=== PATIENT | male | born 1970 | race African-American/Black ===

== ENCOUNTER 2019-02-18 04:54 | Inpatient (IN) ==
[2019-02-10 08:40] LABS: Basophils # 0.1 10*3/uL (0.0-0.2); Eosinophils # 0.1 10*3/uL (0.0-0.87); Hematocrit 42.8 VOL% (42.0-52.0); Hemoglobin 13.6 GM/DL (14.0-18.0); Immature Granulocytes % 0.2 %; Immature Granulocytes Absolute 0.01 #; Lymphocytes # 1.9 10*3/uL (1.4-4.0); Lymphocytes % 31.7 % (21.2-54.2); Mean Corpuscular HGB Conc 31.8 GM/DL (32-36); Mean Corpuscular Volume 88.6 FL (87-102); Mean Platelet Volume 8.8 FL (9.6-12.0); Monocytes % 6.7 % (1.7-12.7); Neutrophils % 59.4 % (38.7-73.9); Platelet Count 242 T/CUMM (130-400); Red Blood Count 4.83 MC/CUMM (3.8-5.5); Red Cell Distribution Width 14.1 % (9.3-17.3); White Blood Count 6.1 T/CUMM (4-12)
[2019-02-10 08:48] LABS: PT Patient Result 10.7 SECS; Partial Thromboplastin Time 26.3 SECS (0-40)
[2019-02-10 08:50] LABS: Apearance,Urine CLEAR (Clear); Bilirubin,Urine Negative (Negative); Blood, Urine Negative (Negative); Glucose,Urine (UA) Negative (Negative); Ketones,Urine Negative (Negative); Mucus,Urine Occasional /LPF (Occasional); Nitrite,Urine Negative (Negative); Protein,Urine Negative; RBC,Urine <1 /HPF (0-4); Urine Color Yellow (Yellow); Urine Specific Gravity 1.015 (1.001-1.035); Urine Urobilinogen < 2.0 EU/DL (0.2-1.0); WBC,Urine <1 /HPF (0-6)
[2019-02-10 09:10] LABS: Albumin 3.8 G/DL (3.4-5.0); Bilirubin,Total 0.5 MG/DL (0.2-1.0); Calcium 8.5 MG/DL (8.5-10.1); Osmolality,Calculated 279.4 MOS/KG (273-304); Total Protein 6.8 G/DL (6.4-8.3)
[2019-02-18] MEDS ORDERED: VANCOMYCIN INJ 1,000 MG in SODIUM CHLORIDE 0.9% 250 ML IV ONE ×2 (06:00→20:00)
[2019-02-18] MEDS ORDERED: CLINDAMYCIN INJ 900 MG in PREMIX 1 EACH IV ONE (06:00)
[2019-02-18] MEDS ORDERED: CLINDAMYCIN INJ 50 ML IV ONE (07:12)
[2019-02-18] MEDS ORDERED: VANCOMYCIN 1,000 MG VIAL ONE (07:12)
[2019-02-18] MEDS: LACTATED RINGERS 1,000 ML IV SCH ×3 (08:09→23:24)
[2019-02-18] MEDS ORDERED: BACITRACIN OINT 0.9 GM PACK TOP ONE (11:03)
[2019-02-18] MEDS ORDERED: ONDANSETRON 4 MG/2 ML VIAL IV PRN (11:34)
[2019-02-18] MEDS ORDERED: oxyCODONE IR 5 MG TABLET PO PRN (11:34)
[2019-02-18] MEDS ORDERED: MAGNESIUM HYDROXIDE SUSP 30 ML UDCUP PO PRN (11:34)
[2019-02-18] MEDS ORDERED: diphenhydrAMINE CAP 25 MG CAPSULE PO PRN (11:34)
[2019-02-18] MEDS ORDERED: MORPHINE 4 MG/1 ML VIAL IV PRN ×2 (11:34)
[2019-02-18] MEDS ORDERED: LIDOCAINE 1% 5 ML VIAL ONE (11:56)
[2019-02-18] MEDS ORDERED: BUPIVACAINE SPINAL 0.75% 2 ML AMP SPINAL ONE (11:56)
[2019-02-18] MEDS ORDERED: PROPOFOL 200 MG/20 ML VIAL IV ONE (11:56)
[2019-02-18] MEDS ORDERED: fentaNYL 100 MCG/2 ML VIAL ONE (11:56)
[2019-02-18] MEDS ORDERED: BUPIVACAINE 0.5% 50 ML VIAL ONE (11:56)
[2019-02-18] MEDS ORDERED: EPINEPHrine 1 MG/ML VIAL ONE (11:57)
[2019-02-18] MEDS ORDERED: MIDAZOLAM 2 MG/2 ML VIAL ONE (11:57)
[2019-02-18] MEDS ORDERED: ONDANSETRON 4 MG/2 ML VIAL ONE ×2 (11:58→12:00)
[2019-02-18] MEDS ORDERED: TRANEXAMIC ACID 1,000 MG/10 ML VIAL ONE (11:58)
[2019-02-18] MEDS ORDERED: KETAMINE 500 MG/10 ML VIAL ONE (11:58)
[2019-02-18] MEDS ORDERED: DEXAMETHASONE 4 MG/1 ML VIAL ONE (11:58)
[2019-02-18] MEDS ORDERED: SODIUM CHLORIDE 0.9% 100 ML IV ONE (11:59)
[2019-02-18] MEDS ORDERED: ETOMIDATE 40 MG/20 ML VIAL IV ONE (11:59)
[2019-02-18] MEDS: ACETAMINOPHEN 500 MG TABLET PO SCH ×2 (16:21→20:54)
[2019-02-18] MEDS: CLINDAMYCIN INJ 900 MG in PREMIX 1 EACH IV SCH ×2 (18:10→23:24)
[2019-02-18] MEDS: KETOROLAC 30 MG/1 ML VIAL IV SCH ×2 (18:47→23:24)
[2019-02-18] MEDS: PANTOPRAZOLE 40 MG TABLET PO SCH (20:45)
[2019-02-18] MEDS: ARIPiprazole 10 MG TABLET PO SCH (20:45)
[2019-02-18] MEDS: PROPRANOLOL 10 MG TABLET PO SCH (20:45)
[2019-02-18] MEDS: DOCUSATE SODIUM 100 MG CAPSULE PO SCH (20:45)
[2019-02-18] MEDS: traZODone 50 MG TABLET PO PRN (20:45)
[2019-02-18] MEDS ORDERED: NON-FORMULARY MEDICATION (Vortioxetine Hydrobromide [Trintellix] 10 MG) PO SCH (21:00)
[2019-02-18] MEDS: oxyCODONE IR 5 MG TABLET PO PRN (23:24)
[2019-02-19] MEDS: ACETAMINOPHEN 500 MG TABLET PO SCH ×2 (03:01→09:21)
[2019-02-19 05:11] LABS: Basophils % 0.2 % (0.0-0.8); Hematocrit 33.1 VOL% (42.0-52.0); Hemoglobin 10.7 GM/DL (14.0-18.0); Immature Granulocytes % 0.4 %; Immature Granulocytes Absolute 0.05 #; Lymphocytes # 1.3 10*3/uL (1.4-4.0); Lymphocytes % 11.5 % (21.2-54.2); Mean Corpuscular HGB Conc 32.3 GM/DL (32-36); Mean Corpuscular Volume 87.1 FL (87-102); Mean Platelet Volume 9.2 FL (9.6-12.0); Monocytes % 7.1 % (1.7-12.7); Neutrophils % 80.8 % (38.7-73.9); Platelet Count 201 T/CUMM (130-400); Red Cell Distribution Width 13.7 % (9.3-17.3); White Blood Count 11.3 T/CUMM (4-12)
[2019-02-19 05:30] LABS: Osmolality,Calculated 277.7 MOS/KG (273-304)
[2019-02-19] MEDS: KETOROLAC 30 MG/1 ML VIAL IV SCH ×2 (06:37→12:06)
[2019-02-19] MEDS: FONDAPARINUX 2.5 MG/0.5 ML SYRINGE SUBCUT SCH (06:37)
[2019-02-19] MEDS: oxyCODONE IR 5 MG TABLET PO PRN (06:37)
[2019-02-19] MEDS: DOCUSATE SODIUM 100 MG CAPSULE PO SCH ×2 (09:21→20:41)
[2019-02-19] MEDS: LACTATED RINGERS 1,000 ML IV SCH ×2 (11:39→11:40)
[2019-02-19] MEDS: CELECOXIB 200 MG CAPSULE PO SCH (18:14)
[2019-02-19] MEDS: ARIPiprazole 10 MG TABLET PO SCH (20:41)
[2019-02-19] MEDS: PROPRANOLOL 10 MG TABLET PO SCH (20:41)
[2019-02-19] MEDS: PANTOPRAZOLE 40 MG TABLET PO SCH (20:41)
[2019-02-19] MEDS: traZODone 50 MG TABLET PO PRN (21:42)
[2019-02-20] MEDS: FONDAPARINUX 2.5 MG/0.5 ML SYRINGE SUBCUT SCH (05:50)
[2019-02-20 06:05] LABS: Basophils % 0.4 % (0.0-0.8); Eosinophils # 0.1 10*3/uL (0.0-0.87); Eosinophils % 0.6 % (0.00-10.9); Hemoglobin 9.5 GM/DL (14.0-18.0); Immature Granulocytes % 0.3 %; Immature Granulocytes Absolute 0.02 #; Lymphocytes # 2.9 10*3/uL (1.4-4.0); Lymphocytes % 36.4 % (21.2-54.2); Mean Corpuscular HGB Conc 31.7 GM/DL (32-36); Mean Corpuscular Volume 87.5 FL (87-102); Mean Platelet Volume 9.6 FL (9.6-12.0); Monocytes % 7.5 % (1.7-12.7); Neutrophils % 54.8 % (38.7-73.9); Platelet Count 182 T/CUMM (130-400); Red Blood Count 3.43 MC/CUMM (3.8-5.5); White Blood Count 7.8 T/CUMM (4-12)
[2019-02-20 07:57] VITALS: BP 134/68
[2019-02-20] MEDS: DOCUSATE SODIUM 100 MG CAPSULE PO SCH (08:52)
[2019-02-20] MEDS: CELECOXIB 200 MG CAPSULE PO SCH (08:52)
== END 2019-02-20 11:04 | disposition home or self-care (01) | DRG 302 ==
LOC: N.OR 04:54 → N.SDSINP 04:55 → N.3E 11:35
PROVIDERS: ADMIT Orthopaedic Surgery; ATTEND Orthopaedic Surgery

== ENCOUNTER 2019-12-04 04:52 | Observation (INO) ==
[2019-11-28 09:35] LABS: Basophils # 0.1 10*3/uL (0.0-0.2); Basophils % 0.9 % (0.0-0.8); Eosinophils % 0.2 % (0.00-10.9); Hematocrit 43.9 VOL% (42.0-52.0); Hemoglobin 14.2 GM/DL (14.0-18.0); Immature Granulocytes % 0.2 %; Immature Granulocytes Absolute 0.02 #; Lymphocytes # 2.1 10*3/uL (1.4-4.0); Lymphocytes % 26.4 % (21.2-54.2); Mean Corpuscular HGB Conc 32.3 GM/DL (32-36); Mean Corpuscular Volume 88.7 FL (87-102); Mean Platelet Volume 8.6 FL (9.6-12.0); Monocytes % 6.6 % (1.7-12.7); Neutrophils % 65.7 % (38.7-73.9); Platelet Count 280 T/CUMM (130-400); Red Blood Count 4.95 MC/CUMM (3.8-5.5); Red Cell Distribution Width 14.7 % (9.3-17.3)
[2019-11-28 09:54] LABS: Calcium 8.8 MG/DL (8.5-10.1); Osmolality,Calculated 276.5 MOS/KG (273-304)
[2019-12-04] MEDS ORDERED: DIAZEPAM 5 MG TABLET PO ONE (06:00)
[2019-12-04] MEDS ORDERED: GABAPENTIN 400 MG CAPSULE PO ONE (06:00)
[2019-12-04] MEDS ORDERED: ACETAMINOPHEN 500 MG TABLET PO ONE (06:00)
[2019-12-04] MEDS ORDERED: CLINDAMYCIN INJ 900 MG in PREMIX 1 EACH IV ONE (06:00)
[2019-12-04] MEDS ORDERED: FAMOTIDINE 20 MG TABLET PO ONE (06:00)
[2019-12-04] MEDS ORDERED: FAMOTIDINE 20 MG TABLET ONE (06:57)
[2019-12-04] MEDS ORDERED: ACETAMINOPHEN 500 MG TABLET ONE (06:57)
[2019-12-04] MEDS ORDERED: DIAZEPAM 5 MG TABLET ONE (06:57)
[2019-12-04] MEDS ORDERED: CLINDAMYCIN INJ 50 ML IV ONE (06:57)
[2019-12-04] MEDS ORDERED: GABAPENTIN 400 MG CAPSULE ONE (06:57)
[2019-12-04] MEDS: LACTATED RINGERS 1,000 ML IV SCH ×2 (07:01→14:10)
[2019-12-04] MEDS ORDERED: LIDOCAINE 1% 5 ML VIAL ONE (08:24)
[2019-12-04] MEDS ORDERED: ROPIVACAINE 0.5% 30 ML VIAL ONE (08:24)
[2019-12-04] MEDS ORDERED: DEXAMETHASONE 4 MG/1 ML VIAL ONE (08:24)
[2019-12-04] MEDS ORDERED: MIDAZOLAM 2 MG/2 ML VIAL ONE (08:59)
[2019-12-04] MEDS ORDERED: BACITRACIN OINT 0.9 GM PACK TOP ONE (10:57)
[2019-12-04] MEDS ORDERED: LIDOCAINE 2% 5 ML VIAL ONE (11:21)
[2019-12-04] MEDS ORDERED: fentaNYL 100 MCG/2 ML VIAL ONE (11:21)
[2019-12-04] MEDS ORDERED: propofoL 200 MG/20 ML VIAL IV ONE (11:21)
[2019-12-04] MEDS ORDERED: SEVOFLURANE 1 UNIT/15 MINUTE INH ONE (11:21)
[2019-12-04] MEDS ORDERED: GLYCOPYRROLATE 0.4 MG/2 ML VIAL ONE (11:21)
[2019-12-04] MEDS ORDERED: HYDROmorphone 2 MG/1 ML VIAL IV PRN (11:24)
[2019-12-04] MEDS ORDERED: ONDANSETRON 4 MG/2 ML VIAL IV PRN ×2 (11:24→13:56)
[2019-12-04] MEDS ORDERED: HYDROmorphone 2 MG/1 ML VIAL ONE (11:26)
[2019-12-04] MEDS ORDERED: ONDANSETRON 4 MG/2 ML VIAL ONE (11:26)
[2019-12-04] MEDS ORDERED: hydrALAZINE 20 MG/1 ML VIAL IV ONE (12:08)
[2019-12-04] MEDS ORDERED: hydrALAZINE 20 MG/1 ML VIAL ONE (12:10)
[2019-12-04 12:19] LABS: Troponin I < 0.015 NG/ML (0.00-0.045)
[2019-12-04] MEDS ORDERED: MORPHINE 10 MG/1 ML VIAL ONE (13:20)
[2019-12-04] MEDS ORDERED: MORPHINE 10 MG/1 ML VIAL IV ONE (13:27)
[2019-12-04] MEDS ORDERED: MORPHINE 4 MG/1 ML VIAL IV ONE (13:30)
[2019-12-04] MEDS ORDERED: NITROGLYCERIN SL 0.4 MG TABLET SL PRN (13:56)
[2019-12-04] MEDS ORDERED: MAGNESIUM SULF RIDER 4 GM in PREMIX 1 EACH IV PRN (13:56)
[2019-12-04] MEDS ORDERED: ALUM/MAG/SIMETH/LIDO VISC 1:1 30 ML BOTTLE PO PRN (13:56)
[2019-12-04] MEDS ORDERED: MAGNESIUM SULF RIDER 2 GM in PREMIX 1 EACH IV PRN (13:56)
[2019-12-04] MEDS ORDERED: ACETAMINOPHEN 325 MG TABLET PO PRN (13:56)
[2019-12-04] MEDS ORDERED: POTASSIUM CHLORIDE 20 MEQ TABLET PO PRN ×2 (13:56)
[2019-12-04 14:44] LABS: Risk Ratio 2.09; VLDL CHOLESTEROL 10.4 MG/DL
[2019-12-04 14:45] LABS: Albumin 3.6 G/DL (3.4-5.0); Bilirubin,Total 0.6 MG/DL (0.2-1.0); Calcium 8.7 MG/DL (8.5-10.1); Osmolality,Calculated 270.8 MOS/KG (273-304); Total Protein 6.8 G/DL (6.4-8.3)
[2019-12-04 16:02] LABS: Basophils % 0.3 % (0.0-0.8); Hemoglobin 14.3 GM/DL (14.0-18.0); Immature Granulocytes % 0.5 %; Immature Granulocytes Absolute 0.03 #; Lymphocytes # 0.7 10*3/uL (1.4-4.0); Lymphocytes % 10.9 % (21.2-54.2); Mean Corpuscular HGB Conc 32.5 GM/DL (32-36); Mean Corpuscular Volume 89.6 FL (87-102); Mean Platelet Volume 8.8 FL (9.6-12.0); Monocytes % 1.4 % (1.7-12.7); Neutrophils % 86.9 % (38.7-73.9); Platelet Count 263 T/CUMM (130-400); Red Blood Count 4.91 MC/CUMM (3.8-5.5); Red Cell Distribution Width 14.7 % (9.3-17.3); White Blood Count 6.3 T/CUMM (4-12)
[2019-12-04 18:44] LABS: Troponin I < 0.015 NG/ML (0.00-0.045)
[2019-12-04 20:36] LABS: Troponin I < 0.015 NG/ML (0.00-0.045)
[2019-12-04] MEDS ORDERED: ARIPiprazole 10 MG TABLET PO SCH (21:00)
[2019-12-04] MEDS ORDERED: amLODIPine 5 MG TABLET PO SCH (21:00)
[2019-12-04] MEDS: busPIRone 15 MG TABLET PO SCH (21:54)
[2019-12-05 04:18] LABS: Barbiturates Screen,Urine Negative (Negative); Benzodiazepines Screen,Urine Positive (Negative); Cannabinoid Screen,Urine Negative (Negative); Opiate Screen,Urine Positive (Negative); Phencyclidine Screen,Urine Negative (Negative)
[2019-12-05 04:55] LABS: Basophils % 0.2 % (0.0-0.8); Eosinophils % 0.1 % (0.00-10.9); Hematocrit 38.6 VOL% (42.0-52.0); Hemoglobin 12.9 GM/DL (14.0-18.0); Immature Granulocytes % 0.3 %; Immature Granulocytes Absolute 0.03 #; Lymphocytes # 1.5 10*3/uL (1.4-4.0); Lymphocytes % 15.7 % (21.2-54.2); Mean Corpuscular HGB Conc 33.4 GM/DL (32-36); Mean Corpuscular Volume 87.3 FL (87-102); Mean Platelet Volume 9.4 FL (9.6-12.0); Monocytes % 7.1 % (1.7-12.7); Neutrophils % 76.6 % (38.7-73.9); Platelet Count 251 T/CUMM (130-400); Red Blood Count 4.42 MC/CUMM (3.8-5.5); Red Cell Distribution Width 14.1 % (9.3-17.3); White Blood Count 9.6 T/CUMM (4-12)
[2019-12-05 05:29] LABS: Calcium 8.7 MG/DL (8.5-10.1); Osmolality,Calculated 272.8 MOS/KG (273-304)
[2019-12-05] MEDS: LACTATED RINGERS 1,000 ML IV SCH (06:13)
[2019-12-05 08:28] VITALS: BP 130/80
[2019-12-05] MEDS ORDERED: PANTOPRAZOLE 40 MG TABLET PO SCH (09:00)
[2019-12-05] MEDS ORDERED: ASPIRIN EC 81 MG TABLET PO SCH (09:00)
[2019-12-05] MEDS ORDERED: lisinopriL 5 MG TABLET PO SCH (09:00)
[2019-12-05] MEDS ORDERED: Vortioxetine [Trintellix] 10 MG PO SCH (09:00)
[2019-12-05] MEDS: busPIRone 15 MG TABLET PO SCH (09:18)
== END 2019-12-05 12:08 | disposition home or self-care (01) ==
LOC: N.SDSINP 04:52 → N.OR 04:52 → N.SDSINP 04:53 → N.TELEN 15:07
PROVIDERS: ADMIT Internal Medicine; ATTEND Internal Medicine